=== PATIENT | male | born 1985 ===

== ENCOUNTER 2020-10-18 11:47 | Outpatient (REF) | payer SELFPAY ==
[2020-10-19 14:50] LABS: ALT 56 U/L (16-63); AST 34 U/L (15-37); Albumin 4.1 g/dL (3.4-5.0); Alkaline Phosphatase 89 U/L (46-116); Anion Gap 6.9 mmol/L (3-11); BUN 19 mg/dL (7-18); Bilirubin, Total 0.3 mg/dL (0.2-1.0); CO2 29.1 mmol/L (21.0-32.0); CREATININE 1.3 mg/dL (0.70-1.30); Calcium 9.7 mg/dL (8.5-10.1); Calculated LDL 119 mg/dL (<100); Chloride 105 mmol/L (98-107); Cholesterol 195 mg/dL (<200); Glucose 87 mg/dL (74-106); HDL Cholesterol 31 mg/dL (40-60); Potassium 4.2 mmol/L (3.5-5.1); Sodium 141 mmol/L (136-145); Total Protein 7.8 g/dL (6.4-8.2); Triglyceride 227 mg/dL (<150)
[2020-10-23 12:15] LABS: IgA 81 mg/dL (85-499); Interpretation (See Note); Tissue Transglutaminase IgA <1.2 U/mL (<4.0)
== END 2020-10-18 11:48 | disposition home or self-care (01) ==
LOC: NCHCN 11:47
PROVIDERS: Visit Provider Nurse Practitioner Community Health
DX: Z13.220 Encounter for screening for lipoid disorders (principal); Z91.89 Other specified personal risk factors, not elsewhere classified; R10.811 Right upper quadrant abdominal tenderness
CPT/HCPCS: 80053; 80061; 82784; 83516